=== PATIENT | male | born 1960 | race Caucasian/White ===

== ENCOUNTER → 2016-09-14 | Outpatient (CLI) | payer OTHER ==
[~2016-09-14] MED LIST: DEPO METHYLPREDNISOLONE 80 MG/ML SDV ONE; IOPAMIDOL (ISOVUE-300) 50 ML VIAL IV ONE; LIDOCAINE 1% 30 ML SDV ONE; NA BICARBONATE 50 MEQ/50 ML VIAL ONE; ROPIVACAINE HCL 150 MG/30 ML INJ ONE
--- NOTE | 2016-09-14 11:08 | DX ---
Right Hip Fluoroscopic-Guided Therapeutic Injection, for intraarticular corticosteroid and anesthetic . History: Patient has had prior right hip steroid injection and stem cell treatment, with persistent pain. Crosscutting Measure #226: Current tobacco user: No.. Consent: Informed written and oral consent was obtained. A timeout was performed. Fluoroscopy Time: 0.3. Cumulative dose 10.4 mGy. Procedure: Utilizing fluoroscopic guidance and sterile technique, the hip was prepped in usual steri le fashion. Lidocaine with bicarbonate was used as local anesthesia. A 22-gauge spinal needle was adv anced into the hip joint. Nonionic contrast injected into the joint to document positioning. 4 mL o f Ropivacaine and 80 mg of Depo-medrol were injected into the hip joint. Needle was removed. Manual h emostasis was achieved. Patient tolerated the procedure well without immediate complications. Dischar ge instructions were given. Impression: 1. Successful right hip injection under fluoroscopic guidance for intraarticular placement of cortico steroid and long-acting anesthetic.
== END ==
LOC: FIMAGING 10:12
PROVIDERS: ATTEND Orthopaedic Surgery
PROC: 3E0U33Z Introduction of Anti-inflammatory into Joints, Percutaneous Approach (ICD-10-PCS; principal; 2016-09-14)
PROC: 3E0U3BZ Introduction of Anesthetic Agent into Joints, Percutaneous Approach (ICD-10-PCS; 2016-09-14)
DX: M25.551 Pain in right hip (principal); M19.91 Primary osteoarthritis, unspecified site
CPT/HCPCS: J1020; J2795; Q9967

== ENCOUNTER 2016-12-25 07:24 | Inpatient (IN) | payer OTHER ==
[2016-12-17 15:54] LABS: % IMMATURE GRANULYOCYTES 0.7 % (0.0-1.1); ABSOLUTE IMMATURE GRANULOCYTES 0.05 10^3/uL (0.00-0.10); ADD DIFF? NO; ADD MORPH? NO; ADD SCAN? NO; ATYPICAL LYMPHOCYTE FLAG 10 (0-99); FRAGMENT RBC FLAG 0 (0-99); LEFT SHIFT FLG 0 (0-99); LIPEMIA HEMOLYSIS FLAG 90 (0-99); MEAN CELL HEMOGLOBIN 29.9 pg (27.9-34.1); MEAN CELL VOLUME 87.9 fL (81.5-99.8); MEAN PLATELET VOLUME 10.5 fL (8.7-11.7); PLATELET CLUMPS FLAG 20 (0-99); PLATELET COUNT 202 10^3/uL (150-400); RED BLOOD CELL COUNT 5.35 10^6/uL (4.40-6.38); RED CELL DISTRIBUTION WIDTH 12.9 % (11.5-15.2)
--- NOTE | 2016-12-17 17:24 | GHP ---
[f rep st] PREOP HISTORY AND PHYSICAL DATE OF ADMISSION: 12/25/2016 He will be an a.m. admission for surgery at [facility] on Sunday, december 25, 2016. PROBLEM: Right hip degenerative arthritis. HISTORY OF PRESENT ILLNESS: The patient is a 56-year-old man admitted for a right hip [place] hi p resurfacing arthroplasty. He has had progressive pain in his right hip for about 4 years. He is having daily pain and some night ache. In January of 2016, he underwent stem cell treatment in [place], [place]. It was mildly helpful. His activities are very limited. He normally likes to play softball, ice hockey, and hike. He has been taking Advil 2-3 times a day. He has trouble putting o n his shoes and socks on the right foot. He had a cortisone injection, and he could not tell if it was any help. He is admitted for right hip BHR. PAST MEDICAL HISTORY: Overall, he is in excellent general health. No history of heart disease, annmarie nts, DVT, hepatitis, or sleep apnea. CURRENT MEDICATIONS: None. ALLERGIES: Drug allergies: None. Metal allergy: None. Latex allergy: None. SOCIAL HISTORY: The patient is single. He does not smoke cigarettes and occasionally drinks alcoho l. He is a computer game programmer. He does not have a primary care doctor. No history of previous MRSA staph infections. FAMILY HISTORY: Positive for diabetes. PHYSICAL EXAMINATION: GENERAL: He is a muscular, fit-appearing man. EYES: Conjunctivae and scler ae are clear. Pupils are round and reactive. MOUTH: Good oral hygiene. No loose teeth. CHEST: Clear. HEART: Regular rhythm. No murmurs. EXTREMITIES: Pertinent findings limited to his right hip. He has full hip extension and 70 degrees of flexion. As he flexes the hip, he develops a 10-d egree external rotation contracture and has no further internal or external rotation. Abduction 20 degrees. IMAGING: His films show very severe degenerative arthritis of the right hip. He is bone on bone. Extensive osteophyte formation is present. His left hip looks normal. IMPRESSION ON ADMISSION: Right hip advanced degenerative arthritis. PLAN: He will undergo a right hip [place] hip resurfacing arthroplasty. The surgery has been de scribed to him, including the risks, complications, expectations, and recovery time. I have discuss ed specifically with him the risk of dislocation, femoral neck fracture, infection, and sciatic nerv e injury. I have described to him extensively the potential risk of a aknqg-[id number] bearing surfac e with elevated metal ions in the blood and in the soft tissues around the hip joint. He understand s that there are no 25 and 30-year followup studies on hip resurfacing. All his questions have been answered, and he consents to surgery. /[id number]/MODL
[~2016-12-25 07:24] MED LIST changes: +ACETAMINOPHEN 325 MG TAB PO ONE; +CEFAZOLIN 2 GM/DEXTR 100 ML IV ONE; +CHLORHEXIDINE GLUC HIBICLENS 118 ML BTL TP ONE; -DEPO METHYLPREDNISOLONE 80 MG/ML SDV ONE; +DEXAMETHASONE 4 MG/ML VIAL IVP ONE; +FAMOTIDINE 20 MG TAB PO ONE; -IOPAMIDOL (ISOVUE-300) 50 ML VIAL IV ONE; -LIDOCAINE 1% 30 ML SDV ONE; -NA BICARBONATE 50 MEQ/50 ML VIAL ONE; +POVIDONE-IODINE 20 ML in SODIUM CL IRRIG SOLUTION 500 ML IRR ONE; +ROPI/epiNEPH/KETOROLAC JOINT COCKTAIL IU ONE; -ROPIVACAINE HCL 150 MG/30 ML INJ ONE; +TRANEXAMIC ACID 1,720 MG in NS 100 ML IV ONE
[2016-12-25] MEDS ORDERED: ceFAZolin 1 GM/5 ML SYR ONE (07:29)
[2016-12-25] MEDS ORDERED: LIDOCAINE 1% 2 ML INJ ONE (07:38)
[2016-12-25] MEDS ORDERED: LR 1,000 ML IV ONE (08:01)
[2016-12-25] MEDS ORDERED: LIDOCAINE 1% 5 ML SDV ID PRN (08:01)
[2016-12-25] MEDS ORDERED: MIDAZOLAM 2 MG/2 ML VIAL ONE (09:24)
[2016-12-25] MEDS ORDERED: LIDOCAINE 2% 100 MG/5 ML SYR ONE (09:27)
[2016-12-25] MEDS ORDERED: PROPOFOL/EMULSION 500 MG/50 ML BOTTLE IV ONE (09:27)
[2016-12-25] MEDS ORDERED: fentaNYL 100 MCG/2 ML INJ ONE (09:27)
[2016-12-25] MEDS ORDERED: ONDANSETRON 4 MG/2 ML VIAL ONE (09:30)
[2016-12-25] MEDS ORDERED: DEXAMETHASONE 4 MG/ML VIAL ONE (09:30)
[2016-12-25] MEDS ORDERED: PHENYLEPHRINE HCL 100 MCG/ML SYR ONE (10:07)
[2016-12-25] MEDS ORDERED: epHEDrine SULFATE 10 MG/ML SYR ONE (10:07)
--- NOTE | 2016-12-25 11:09 | POSTOPPROG ---
Post Op Note Date of Operation: 12/25/16 Surgeon: Bryce Barrett Book Cleaner: Armando Anesthesiologist: Lisa Anesthesia: IV Sedation, Spinal Post-op Diagnosis: R hip arthritis Procedure: T BHR Inf/Abcess present in the surg proc area at time of surgery?: No EBL: 100-500
[2016-12-25] MEDS ORDERED: KETOROLAC 30 MG/1 ML SDV IVP PRN (11:27)
[2016-12-25] MEDS ORDERED: LACTULOSE 20 GM/30 ML UDCUP PO PRN (11:27)
[2016-12-25] MEDS ORDERED: PHARMACY PAIN CONSULT 1 EA MISC PRN (11:27)
[2016-12-25] MEDS ORDERED: TEMAZEPAM 15 MG CAP PO PRN (11:27)
[2016-12-25] MEDS ORDERED: DIPHENOXYLATE/ATROPINE LOMOTIL 1 TAB PO PRN (11:27)
[2016-12-25] MEDS ORDERED: MAGNESIUM HYDROXIDE 30 ML UDCUP PO PRN (11:27)
[2016-12-25] MEDS ORDERED: ONDANSETRON DISINTEGRATING 4 MG TAB PO PRN (11:27)
[2016-12-25] MEDS ORDERED: CYCLOBENZAPRINE 10 MG TAB PO PRN (11:27)
[2016-12-25] MEDS ORDERED: ONDANSETRON 4 MG/2 ML VIAL IVP PRN (11:27)
[2016-12-25] MEDS ORDERED: METOCLOPRAMIDE 10 MG/2 ML VIAL IVP PRN (11:27)
[2016-12-25] MEDS ORDERED: diphenhydrAMINE 25 MG CAP PO PRN (11:27)
[2016-12-25] MEDS ORDERED: NS 500 ML IV PRN (11:27)
[2016-12-25] MEDS ORDERED: traMADol 50 MG TAB PO PRN (11:27)
[2016-12-25] MEDS ORDERED: BISACODYL 10 MG SUPP PR PRN (11:27)
[2016-12-25] MEDS ORDERED: POLYETHYLENE GLYCOL 3350 17 GM PKT PO PRN (11:27)
[2016-12-25] MEDS ORDERED: PROMETHAZINE HCL 25 MG SUPPR PR PRN (11:27)
[2016-12-25] MEDS ORDERED: LR 1,000 ML IV SCH (11:30)
--- NOTE | 2016-12-25 12:40 | GOP ---
[f rep st] OPERATIVE REPORT DATE OF OPERATION: 12/25/2016 SURGEON: Bryce Barrett MD ORE FEEDER: Pavel Mueller and Lam Lind. ANESTHESIA: Marcaine spinal anesthesia and IV sedation. ANESTHESIOLOGIST: Dr. Hola Gonzalez. PREOPERATIVE DIAGNOSIS: Right hip severe degenerative arthritis. POSTOPERATIVE DIAGNOSIS: Right hip severe degenerative arthritis. PROCEDURE PERFORMED: Right hip [place] hip resurfacing arthroplasty. FINDINGS: DESCRIPTION OF PROCEDURE: The patient was given 2 g of IV Ancef preoperatively within 60 minutes of surgery. He also received IV tranexamic acid at a dose of 20 mg/kg. He was placed on the operatin g room table and given spinal anesthesia with Marcaine by Dr. Gonzalez. He was then placed supine and given IV sedation. A Maynard catheter was not used. He wore a compressive stocking and SCD on the n onoperative leg. He was rolled to the left lateral decubitus position. An axillary roll was used a nd all pressure points were carefully padded. The position was secured with the pegboard table tram chment. I was careful to lock his pelvis in a rigid vertical position. His perineum was isolated w ith plastic adhesive drapes. The right hip and right lower extremity were prepped with ChloraPrep. They were draped free using sterile sheets, stockinette, and Ioban plastic drape. The World Health Organization time-out was performed to verify the correct patient identity and the correct surgical side and site. The [place] time-out was also performed. I made a 7-inch straight oblique posterolateral hip skin incision. Subcutaneous tissues were sharpl y divided and hemostasis was obtained using electrocautery. When I made the skin incision, it was s till mildly painful to the patient. Dr. Gonzalez went ahead and gave him a light general anesthesia w ith an LMA. His fascia reina was identified and split along the axis of its fibers. I then curved p osteriorly and proximally and split the fascia of the gluteus travis, and bluntly split the muscle fibers in line with their orientation. His sciatic nerve was identified and protected throughout th e procedure. The Charnley self-retaining retractor was inserted. The external rotators and the pos terior hip capsule were divided as separate layers at the base of the femoral neck, tagged and refle cted posteriorly. The gluteus travis tendon was divided and tagged in order to improve exposure an d release tension on the sciatic nerve. His hip was dislocated posteriorly. I used a sizing gauge to check the diameter of the neck and concluded that 48 mm was the proper head size. I performed a circumferential capsulotomy. I was able to retract the femoral head anteriorly and superiorly and h old it out of place with appropriate retractors. The remnant of his damaged labrum was completely e xcised. He had large periacetabular osteophytes particularly superiorly and posterior inferiorly. These were removed with an osteotome and rongeur. His acetabulum was reamed sequentially up to 54 m m. I selected the [place] monoblock porous-coated acetabular component with an outside diameter of 54 mm. This was firmly impacted and was very tight. I was careful to determine proper inclinati on and anteversion. I used a remnant of his transverse acetabular ligament and other acetabular bon y landmarks to help me properly orient the cup. He had a good lip of bone and capsule extending bey ond the anterior-inferior lip of the metal cup. I then returned to preparation of the head. Using appropriate jigs and guides, I inserted a guide p in into the femoral head and neck. I was careful to position in such a way that there would be no n otching of the neck. The large sterile metal goniometer was used to check the neck shaft angle. I reamed over the guide pin and inserted the reaming guide. I then used the cylindrical reamer down t o the head and neck junction. This was followed by the flat reamer and the chamfer reamer. The hea d was sized for 48 mm. There was no impingement or damage to the neck. He had some hard anterior n eduardo osteophytes. He also had an anterior superior CAM lesion. I removed these with a rongeur. I d rilled a small hole in the lesser trochanter and inserted a suction cannula to create negative press ure in the medullary canal. Small holes were drilled on the flattened chamfer surfaces of the prepa red head for cement anchors. The head was thoroughly cleaned with the pulsating lavage and carefull y dried. I used a CarboJet device to blow dry the cancellous surfaces. A single batch of Simplex c ement with tobramycin was mixed. At about 50 seconds, I poured the liquid cement into the head comp onent, inserted it onto the femoral head and impacted it into place. Excess cement was removed befo re it hardened. The acetabulum was irrigated, cleaned and inspected, and the hip was reduced. Stab ility and range of motion were checked. I placed my finger along the anterior aspect of the acetabu lar component and flexed the hip to 110 degrees. There was no anterior impingement. The suction cannula and lesser trochanter were removed. The wound was thoroughly irrigated with a d ilute Betadine solution. 40 mL of a joint anesthetic cocktail was injected into the capsule, the de ep musculature and the subcutaneous tissues along the skin edges. His sciatic nerve was reinspected and looked unharmed. The external rotators and the posterior hip capsule were repaired in separate layers with #2 FiberWire sutures through drill holes in the greater trochanter. This provided a st yulia posterior capsular and external rotator repair. The gluteus travis tendon was repaired with 2 interrupted [id number] #2 FiberWire sutures. The fascia reina was repaired first with 2 interr upted [id number]-[id number] #2 FiberWire sutures, followed by a running #2 barbed Ethicon Stratafix PDO neves ture. The subcutaneous tissues were closed with a running 0 barbed Ethicon Stratafix Monoderm sutur e. The skin was closed with a running 3-0 barbed Ethicon Stratafix Monoderm subcuticular suture. T he skin edges were reapproximated and sealed with Dermabond glue. The wound was covered with a stri p of Telfa, and everything was set in place with a piece of clear plastic Tegaderm. The estimated b lood loss was about 400 mL. I used a [employer]hew Erickson hip resurfacing system. The acetabular component was 54 mm in diameter and press-fit. The femoral head was 48 mm and cemented. He was awakened from anesthesia and rolled to the supine position on his [facility]. A long-le g ESME stocking and SCD were applied to the operative leg. He was taken to the PACU in satisfactory condition. There were no recognized intraoperative complications. The sponge and needle count were correct on 2 occasions. Pavel Mueller and Lam Lind acted as surgical assistants. Their assistance was a medical gerber izquierdo. /[id number]/MODL
[2016-12-25] MEDS: ACETAMINOPHEN 325 MG TAB PO SCH ×2 (13:07→16:57)
[2016-12-25] MEDS: oxyCODONE IR 5 MG TAB PO PRN (15:47)
[2016-12-25] MEDS: ceFAZolin 2 GM/DEXTROSE 100 ML IV SCH (16:58)
[2016-12-25] MEDS: TRANEXAMIC ACID 650 MG TAB PO SCH (20:29)
[2016-12-25] MEDS: SENNOSIDES/DOCUSATE SODIUM TAB PO SCH (20:30)
[2016-12-25] MEDS: FAMOTIDINE 20 MG TAB PO SCH (20:31)
[2016-12-25] MEDS: ASPIRIN 325 MG TAB PO SCH (20:32)
[2016-12-26] MEDS: ACETAMINOPHEN 325 MG TAB PO SCH ×2 (00:26→04:58)
[2016-12-26] MEDS: oxyCODONE IR 5 MG TAB PO PRN (00:27)
[2016-12-26] MEDS: ceFAZolin 2 GM/DEXTROSE 100 ML IV SCH (00:29)
[2016-12-26] MEDS: TRANEXAMIC ACID 650 MG TAB PO SCH (04:59)
[2016-12-26 05:12] LABS: HEMATOCRIT 36.5 % (40.0-51.0); HEMOGLOBIN 12.3 g/dL (13.7-17.5)
[2016-12-26] MEDS: FAMOTIDINE 20 MG TAB PO SCH (08:24)
[2016-12-26] MEDS: ASPIRIN 325 MG TAB PO SCH (08:24)
[2016-12-26] MEDS: SENNOSIDES/DOCUSATE SODIUM TAB PO SCH (08:25)
[2016-12-26 08:29] VITALS: BP 117/74; PULSE 63; RESP 12; TEMP 97.5; O2SAT 92
[2016-12-26] MEDS ORDERED: FERROUS SULFATE 140 MG TAB.ER PO SCH (09:00)
--- NOTE | 2016-12-26 09:32 | SOAPPROG ---
SOAP Progress Note Assessment/Plan: Assessment: Afebrile. Moderate pain. Up and walking Cleared by PT. Sciatic nerve intact. H/H is good. Films look good. Plan: DC today. 12/26/16 09:31 Objective: Vital Signs Temp Pulse Resp BP Pulse Ox 36.4 C 63 12 117/74 92 12/26/16 08:00 12/26/16 08:00 12/26/16 08:00 12/26/16 08:00 12/26/16 08:00 Laboratory Results 12/26/16 04:34 12/25/16 12/26/16 12/27/16 05:59 05:59 05:59 Intake Total 3180 Output Total 1575 Balance 1605 ICD10 Worksheet Patient Problems: Problems Problem Status Onset Osteoarthritis of right hip Acute
--- NOTE | 2016-12-26 09:53 | GDS ---
[f rep st] DISCHARGE SUMMARY ADMISSION DIAGNOSIS: Right hip severe degenerative arthritis. DISCHARGE DIAGNOSIS: Right hip severe degenerative arthritis. OPERATION PERFORMED: On 12/25/2016, right hip [place] hip resurfacing arthroplasty. POSTOPERATIVE COMPLICATIONS: None. CONDITION ON DISCHARGE: Improved. DESCRIPTION OF HOSPITAL COURSE: The patient was admitted to the hospital on the morning of surgery. His admission CBC was normal. The same day, under combination of Marcaine, spinal and IV sedation , he underwent a right hip [place] hip resurfacing arthroplasty. Postoperatively, he was treated with multimodal DVT prophylaxis including aspirin and early mobilization. On the first postoperati ve day, his hemoglobin and hematocrit were 12.3 and 36.5. He was seen by Physical Therapy and made good progress with ambulation and stairs. By the time of discharge, he was afebrile and was indepen dent in walking. DISPOSITION: The patient discharged to his home. He will go to outpatient physical therapy in [facility]. Continue ESME stockings for 1 week. Use an abduction pillow in bed for 3 weeks. He may progr ess to full weightbearing on the right as tolerated. He has prescriptions for tramadol and oxycodon e for pain control. I will see him back in the office on 01/17/2017. If any problems, he is to mohan brock at the office. /[id number]/MODL
== END 2016-12-26 11:47 | disposition home or self-care (01) | DRG 470 ==
LOC: F3N 07:24
PROVIDERS: ADMIT Orthopaedic Surgery; ATTEND Orthopaedic Surgery
PROC: 0SU90BZ Supplement Right Hip Joint with Resurfacing Device, Open Approach (ICD-10-PCS; principal; 2016-12-25 09:30)
DX: M16.11 Unilateral primary osteoarthritis, right hip (principal)
CPT/HCPCS: 97116-GP; 97161-GP; 97165-GO; C1713; C1769; J0171; J0690; J1100; J1885; J2001; J2250; J2370; J2405; J2704; J2795; J3010